=== PATIENT | male | born 1960 | race Caucasian/White ===

== ENCOUNTER 2020-04-20 14:07 | Inpatient (IN) | payer OTHER ==
[~2020-04-20] VITALS: Ht 177.8 cm; Wt 98.5 kg
[2020-04-20 14:12] VITALS: BP 134/84
[2020-04-20 14:49] LABS: ABSOLUTE NEUTROPHILS 8.7 thou/uL (1.4-8.2); BASOPHILS 0.1 % (0.0-2.0); HEMATOCRIT 44.3 % (42.0-52.0); HEMOGLOBIN 15.2 gm/dL (14.0-18.0); LYMPHOCYTES 3.7 % (24.0-44.0); MCH 30.9 pg (26.0-34.0); MCHC 34.3 g/dL (28.0-37.0); MCV 90.1 fL (80.0-100.0); MONOCYTES 4.3 % (1.0-8.0); PLATELET COUNT 220 thou/uL (150-400); POLYS 91.9 % (36.0-66.0); RBC 4.91 mil/uL (4.50-6.00); RDW 13.4 % (10.5-14.5); WBC 9.4 thou/uL (4.0-11.0)
[2020-04-20 15:02] LABS: ALBUMIN 2.7 g/dL (3.4-5.0); CALCIUM 9.3 mg/dL (8.5-10.1); CREATININE 1.4 mg/dL (0.7-1.3); POTASSIUM 3.7 mmol/L (3.5-5.1); TOTAL BILIRUBIN 0.9 mg/dL (0.2-1.0); TOTAL PROTEIN 7.1 g/dL (6.4-8.2)
[2020-04-20 15:12] LABS: APTT 31.4 Seconds (24.5-32.8); PROTIME 9.8 Seconds (9.3-11.4)
[2020-04-20 16:45] LABS: URINE BILIRUBIN NEGATIVE (Negative); URINE BLOOD TRACE (Negative); URINE CLARITY CLEAR; URINE COLOR YELLOW; URINE GLUCOSE-RANDOM* 3+ (Negative); URINE KETONES 2+ (Negative); URINE LEUKOCYTES-REFLEX NEGATIVE (Negative); URINE NITRITE-REFLEX NEGATIVE (Negative); URINE PROTEIN (DIPSTICK) NEGATIVE (Negative); URINE SPECIFIC GRAVITY <= 1.005 (1.005-1.035); URINE UROBILINOGEN 0.2 E.U./dl (0.2-1.0)
[2020-04-20 16:55] LABS: BACTERIA-REFLEX None Seen /HPF (None Seen); CASTS None Seen /LPF (None Seen); CRYSTALS None Seen /LPF (None Seen); SQUAMOUS None Seen /LPF (0-3); URINE RBC 0-2 Rare /HPF (0-2); URINE WBC-REFLEX 0-5 Rare /HPF (0-5)
[2020-04-20] MEDS ORDERED: LOSARTAN-HCTZ1 EAC3 PO (17:15)
[2020-04-20 17:16] VITALS: BP 134/84
[2020-04-20 18:40] VITALS: BP 138/88
[2020-04-20 18:43] VITALS: BP 141/98
--- NOTE | 2020-04-20 19:39 | NUR ---
Report received at 1815 from ER. Pt arrived in the unit at 1843; transferred to bed safely. Vital signs stable. No diet ordered- on carb controlled diet; tolerating well; no nausea, no vomiting and no abdominal pain noted. Admission education done. Forms to be signed. Admission assessment and history to be signed- Night RN informed. Falls bundle in place. On non rebreather mask at 15lpm. No complains and signs of chest pain, crushing sensation and heaviness. With LIZETT Arango AC. Med rec done as per ER staff; no pharmacy in record- Night RN informed. Pt seen and examined by Dr Bray this evening. To continue monitoring patient.
--- NOTE | 2020-04-20 20:23 | HC ---
[facility] [place] [address] CONSULTATION Name: CARMEN ALVAREZ Room #: 356-P [facility] IN M.R.#: [id number] Admission: 04/20/20 Attend Phys: Oleg Cadet MD, [facility] Discharge: Date of : 64 Report #: [id number] THIS REPORT FOR: cc: Oleg Cadet MD [facility] Oleg Cadet MD [facility] Enrique Bray MD ~ DATE OF SERVICE: 04/20/2020 INFECTIOUS DISEASE CONSULTATION REASON FOR CONSULTATION: I was asked to evaluate concerning pneumonia due to COVID. HISTORY OF PRESENT ILLNESS: The patient is a 60-year-old with underlying history of hypertension, who was diagnosed COVID-19 positive on 04/10/2020. He had been sick for approximately 3 days prior to this. He did receive a Medrol Dosepak and a Z-[place]. Initial onset of his infection was marked by fever, headache, loss of taste and smell, mild nausea, nonproductive cough. Subsequently, developed shortness of breath. Albuterol inhaler did not help his symptoms. His fever has resolved, although his shortness of breath has worsened and he was brought into the Emergency Room today. His oxygen sats rate was in the 70s on room air. In addition, he was noticed to have elevated blood glucose above 600. He was started on Decadron in addition to azithromycin and ceftriaxone. He is now on insulin. The patient has had no pleuritic chest pain. No hemoptysis. He has dyspnea with any activity and talking. He is now on a nonrebreather mask. REVIEW OF SYSTEMS: A 14-point review of system was negative other than what has been described above. The patient reports tobacco use, probably 20 years ago. He has had pneumonia as a child. No history of asthma. No known previous history of diabetes. He has been moderately obese. He remains fairly active and he rides motorcycles as his main hobby. ALLERGIES: None known. MEDICATIONS: As noted on his MAR including losartan, hydrochlorothiazide, now on antibiotics and steroids. PAST MEDICAL HISTORY: Hypertension, recurrent sinusitis and seasonal allergies, left knee arthroscopic surgery, neuroma right foot, sinus surgery, facial reconstruction and dental implants. FAMILY HISTORY: Diabetes. [address] [address] CONSULTATION Name: CARMEN ALVAREZ Room #: 356-P [facility] IN M.R.#: [id number] Admission: 04/20/20 Attend Phys: Oleg Cadet MD, FAAF Discharge: Date of : 64 Report #: [id number] SOCIAL HISTORY: He is . His and daughter also had COVID, in recovery. 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 PHYSICAL EXAMINATION: VITAL SIGNS: He was afebrile and hemodynamically stable. GENERAL: He was alert and cooperative. Had a nonrebreather mask in place. He is moderately obese. SKIN: Without rash or decubitus. No palpable adenopathy. EYES: Without scleral icterus. MOUTH: Without mucositis. NECK: Supple. LUNGS: Few crackles were heard in the mid posterior chest and bases. No consolidation. No rub. HEART: Regular without appreciable murmur, gallop or rub. ABDOMEN: Soft, nontender with no hepatosplenomegaly or mass appreciated. EXTREMITIES: Without clubbing, cyanosis or edema. GENITOURINARY: Not performed. RECTAL: Not performed. NEUROLOGIC: Cranial nerves intact. Strength in his upper and lower extremities were symmetric and within normal limits. Mood without anxiety or depression. LABORATORY STUDIES: Reviewed. MICROBIOLOGY: Reviewed. Chest x-ray reviewed. IMPRESSION: 1. COVID-19 with severe acute respiratory syndrome and respiratory failure. 2. Obesity. 3. Hypertension. 4. Newly diagnosed diabetes. 5. Acute kidney injury. RECOMMENDATION: The patient will be started on COVID isolation and on the COVID unit for cardiopulmonary monitoring. He will be started on antiviral therapy. I discussed the risks, benefits of his antiviral therapy including remdesivir and we will add ivermectin in addition to combination multivitamin. Given his rapid progression, we will also offer convalescent plasma. Studies do show best if used early in the disease process, but hopefully this will help control his rapid decline. We will check inflammatory markers and follow laboratory studies and x-ray. We discussed role of oxygen supplementation and possibility of [address] [address] CONSULTATION Name: ANTONIOCARMEN BRANNON Room #: 356-P ADM IN M.R.#: [id number] Admission: 04/20/20 Attend Phys: Oleg Cadet MD, FAAF Discharge: Date of : 64 Report #: [id number] intubation and mechanical ventilation. He was in agreement with full treatment program. Questions were answered. <ELECTRONICALLY SIGNED> By: Enrique Bray MD 04/20/202022 15 30 Enrique Bray MD /nt
[2020-04-21 00:36] VITALS: BP 125/87
[2020-04-21] MEDS ORDERED: PREVACID30 MG PO (01:31)
[2020-04-21 05:03] VITALS: BP 123/75; BP 124/73; BP 129/78
[2020-04-21 05:24] LABS: ABSOLUTE NEUTROPHILS 6.1 thou/uL (1.4-8.2); BASOPHILS 0.3 % (0.0-2.0); HEMATOCRIT 41.4 % (42.0-52.0); HEMOGLOBIN 14.2 gm/dL (14.0-18.0); LYMPHOCYTES 5.9 % (24.0-44.0); MCH 30.7 pg (26.0-34.0); MCHC 34.3 g/dL (28.0-37.0); MCV 89.5 fL (80.0-100.0); MONOCYTES 2.9 % (1.0-8.0); PLATELET COUNT 230 thou/uL (150-400); POLYS 90.9 % (36.0-66.0); RBC 4.63 mil/uL (4.50-6.00); RDW 13.5 % (10.5-14.5); WBC 6.7 thou/uL (4.0-11.0)
[2020-04-21 05:33] LABS: ALBUMIN 2.4 g/dL (3.4-5.0); CALCIUM 8.8 mg/dL (8.5-10.1); CREATININE 1.1 mg/dL (0.7-1.3); POTASSIUM 3.8 mmol/L (3.5-5.1); TOTAL BILIRUBIN 0.5 mg/dL (0.2-1.0); TOTAL PROTEIN 6.4 g/dL (6.4-8.2)
--- NOTE | 2020-04-21 05:44 | NUR ---
ASSESSMENTS CHARTED, MEDS CHARTED GIVEN. PATIENT RESTING IN BED DURING SHIFT. UP AT SULLY IN ROOM, PATIENT ON REBREATHER MASK AT 15 LITERS. PATIENT RECEIVED INITIAL DOSE OF REMDESIVIR AND CONVELESENT PLASMA. FALL PRECAUTIONS IN PLACE DURING SHIFT. DENIED PAIN.
--- NOTE | 2020-04-21 07:39 | EKG ---
[place] [address] [facility] [place] [address] ELECTROCARDIOGRAM REPORT Name: CARMEN ALVAREZ Room #: 356-P ADM IN M.R.#: [id number] Admission: 04/20/20 Attend Phys: Oleg Cadet MD, FAAF Discharge: Date of : 64 Report #: [id number] [facility] ED Test Date: 2020-04-20 Test Time: 15:07:13 Pat Name: CARMEN ALVAREZ Department: Room: 356 Gender: M [employer]: : 1960 Requested By: Dayne Gonzales Order Number: [id number] MD: Neto Oakley Measurements Intervals Craig Rate: 92 P: 26 LA: 160 QRS: 19 QRSD: 103 T: -18 QT: 368 QTc: 456 Interpretive Statements Sinus rhythm Probable left atrial enlargement Inferior infarct, age indeterminate Compared to ECG 05/11/2009 14:39:09 Myocardial infarct finding now present Electronically Signed On 04-21-2020 7:39:37 PIANO TUNER by Neto Oakley [email or web address] <ELECTRONICALLY SIGNED> By: Neto Oakley MD, [facility] 04/21/20 0739 [id number] Neto Oakley MD, FACC /EPI
[2020-04-21 11:32] VITALS: BP 11/65
[2020-04-21 15:27] VITALS: BP 119/80
--- NOTE | 2020-04-21 15:46 | NUR ---
CARE ASSUMED AT 0700, ALERT AND ORIENTED X4, DENIES ANY PAIN, NAUSEA AND VOMITTING. T IS NOW ON OPTI FLOW, 50L, SOB WITH EXERTION. ABLE TO USE URINAL OT GO TO BATHROOM INDEPENDENTLY. PT IS SLOWLY PROGRESSING TOWARDS CARE.
--- NOTE | 2020-04-21 18:28 | NUR ---
CALLED PT ISABELL BACK, NO ANSWER, LEFT A VOICE MESSSAGE.
[2020-04-21 21:05] VITALS: BP 119/79
[2020-04-21 23:29] VITALS: BP 116/73
--- NOTE | 2020-04-22 03:02 | NUR ---
PT PROGRESING TOWARDS D/C GOALS . VSS AFEBRILE. SATS 88-90% ON OPTIFLO. NOTIFIED RT. DENIED PAIN EXCEPT WITH COUGHING. BED DOWN CALL LIGHT IN REACH. ENCOUIRAGED PT TO USE URINAL AT BS.
[2020-04-22 03:44] VITALS: BP 101/72
[2020-04-22 04:06] LABS: GLYCOHEMOGLOBIN (HGB A1C) 12.2 % (4.8-5.6)
--- NOTE | 2020-04-22 05:45 | NUR ---
PT PROGRESING TOWARDS D/C GOALS VSS SATS 95% with optiflo.40LF and 95% fio2. Pt stated he feelslike he is beathing better and lungs are moving air. Nonproductive cough noted. He refused for ns to call for cough meds or lozenges.
[2020-04-22 06:05] LABS: ABSOLUTE NEUTROPHILS 7.1 thou/uL (1.4-8.2); BASOPHILS 0.1 % (0.0-2.0); HEMOGLOBIN 14.2 gm/dL (14.0-18.0); LYMPHOCYTES 7.2 % (24.0-44.0); MCH 30.7 pg (26.0-34.0); MCHC 33.7 g/dL (28.0-37.0); MCV 91.1 fL (80.0-100.0); MONOCYTES 6.2 % (1.0-8.0); PLATELET COUNT 260 thou/uL (150-400); POLYS 86.5 % (36.0-66.0); RBC 4.61 mil/uL (4.50-6.00); WBC 8.3 thou/uL (4.0-11.0)
[2020-04-22 06:53] LABS: ALBUMIN 2.2 g/dL (3.4-5.0); CALCIUM 8.9 mg/dL (8.5-10.1); CREATININE 1.1 mg/dL (0.7-1.3); DIRECT BILIRUBIN 0.1 mg/dL (<0.1-0.2); PHOSPHORUS 3.5 mg/dL (2.6-4.7); POTASSIUM 3.9 mmol/L (3.5-5.1); TOTAL BILIRUBIN 0.4 mg/dL (0.2-1.0)
[2020-04-22 07:47] VITALS: BP 125/77
[2020-04-22 11:50] VITALS: BP 118/52
--- NOTE | 2020-04-22 15:12 | NUR ---
INITIAL ASSESSMENT: DARCY reviewed chart and spoke with nursing and attending physician. Pt was admitted from home due to COVID-19. Pt placed in Enhanced Isolation. Pt had first COVID positive test on 04/10. Pt is afebrile and requiring optiflow. Pt is on IV abx and IV steroids. Pt is on Remdesivir and Ivermectin. SW placed call to pt's room. No answer. Per chart, pt is alert/orientated x 4. Pt lives at home with family. Plan is for pt to discharge home when medically stable. DARCY is following to assist as needed with discharge planning.
[2020-04-22 15:15] VITALS: BP 118/79
--- NOTE | 2020-04-22 18:37 | H ---
[facility] [place] [address] [place] [address] HISTORY AND PHYSICAL Name: CARMEN ALVAREZ Room #: 356-P ADM IN M.R.#: [id number] Admission: 04/20/20 Attend Phys: Oleg Cadet MD, FAAF Discharge: Date of : 64 Report #: [id number] THIS REPORT FOR: cc: Oleg Cadet MD FAAFP FACEP Oleg Cadet MD FAAFP FACEP Oleg Cadet MD FAA FACEP ~ DATE OF SERVICE: 04/20/2020 CHIEF COMPLAINT: Shortness of breath; COVID pneumonia. HISTORY OF PRESENT ILLNESS: The patient is a 60-year-old white male well known to me, who had been sick for a couple of days prior to testing in late March for COVID-19. He has his positive result on 04/10/2020. He started a Z-GABRIELLA and Medrol Dosepak. He has had fever, cough and myalgias. He has had worsening shortness of breath over the past 3-4 days. He did start PulmoAide albuterol breathing treatments aerosolized, had 2 treatment yesterday and 2 today. Despite this, he had persistent worsening shortness of breath. He was directed to the Emergency Department at [facility] where he was found to have bilateral pneumonias, hypoxia with an O2 sat on room air into the 70s and markedly elevated blood sugar at 627 with no personal history of diabetes. He started on insulin, ceftriaxone and azithromycin. He was given Decadron as well and admitted to the step-down unit. An Infectious Disease consult was requested. PAST MEDICAL HISTORY: Hypertension, episodic sinusitis and seasonal allergies. PAST SURGICAL HISTORY: Reconstructive surgery, left knee arthroscopy; right knee Quan's neuroma, right foot; sinus surgery, facial bone harvesting graft, dental implants. MEDICATIONS: Losartan, HCTZ 100/25 one p.o. q.a.m. ALLERGIES: No known drug allergies. Does not feel well with opiate narcotic pain relievers and avoids those. FAMILY HISTORY: Positive for diabetes in a brother who of complications of diabetes with noncompliance. 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 REVIEW OF SYSTEMS: GENERAL: He has had fever, chills. No nausea, vomiting or diarrhea. EYES: Some blurry vision. ENT: No problems with hearing. He has had some change in taste and smell. [facility] [address] [place] [address] HISTORY AND PHYSICAL Name: CARMEN ALVAREZ Room #: 356-P [facility] IN .R.#: [id number] Admission: 04/20/20 Attend Phys: Oleg Cadet MD, FAAF Discharge: Date of : 64 Report #: [id number] CARDIOVASCULAR: Some chest discomfort bilaterally. PULMONARY: His COVID pneumonia with hypoxia. GASTROINTESTINAL: No abdominal pain. GENITOURINARY: No problems urinating. Urine output has been increased over the last 2 weeks. MUSCULOSKELETAL: He has myalgias. NEUROLOGIC: No paresis, paralysis, or paresthesias. PSYCHIATRIC: Frustrated, not depressed. DERMATOLOGIC: No disturbing lesions or rash. Remainder of system review is negative. OBJECTIVE: VITAL SIGNS: Temperature is 35.7, pulse 111, respirations 26, blood pressure 134/84, and pulse ox on room air was 79%. He is now on nonrebreather face mask at 10 liters and is saturating 98%. Speaks full sentences, is coherent and engaging in conversation, no acute distress other than his breathing, which is calm with a rate of 15 at the time of my exam bedside in the Emergency Department. HEENT: Pupils are equal, round, reactive to light and accommodation. Extraocular muscles intact. Pharynx with dry mucous membranes. NECK: Supple. COR: S1, S2. CHEST: Scattered coarse breath sounds with diminished air movement. ABDOMEN: Globus, soft, nontender. EXTREMITIES: No cyanosis, clubbing or edema. NEUROLOGIC: Intact without focal neurologic deficit. LABORATORY EVALUATION: CBC: White count is 9.4, hemoglobin 15.2, hematocrit 44.3, platelets 220,000. Differential on white count, 91.9% segmented neutrophils, 3.7% lymphocytes, 4.3% monocytes, no eosinophils, 0.1 basophils, absolute neutrophil count 8.7. PT is 9.8, INR is 1.0, APTT 31.4. Serum chemistry: Sodium 128, potassium 3.7, chloride 89, CO2 of 25, anion gap 14, BUN 23, creatinine 1.4, estimated glomerular filtration rate is 52, glucose 627. Lactate 2.4, calcium 9.3, total bilirubin 0.9, AST 20, ALT 34, alkaline phosphatase 71. LV total 312. Creatinine kinase 53. C-reactive protein 160.8, total protein 7.1, albumin 2.7. Procalcitonin 0.42. Chest x-ray done from the Emergency Department shows bibasilar infiltrates, worse in both bases. ASSESSMENT: 1. COVID pneumonia. 2. Hypoxic respiratory failure. 3. Hyperglycemia with new diagnosis of diabetes. 4. Hyponatremia. [facility] [address] [place] [address] HISTORY AND PHYSICAL Name: CARMEN ALVAREZ Room #: 356-P ADM IN ..#: [id number] Admission: 04/20/20 Attend Phys: Oleg Cadet MD, RADHA Discharge: Date of : 64 Report #: [id number] PLAN: Admit to hospital, Zithromax, Rocephin and steroids, supplemental oxygen. We will add Lovenox and SCDs for DVT/PE prophylaxis. ID consult. Insulin management for hyperglycemic with new diabetes and diabetic education. <ELECTRONICALLY SIGNED> By: Oleg Cadet MD, BETH, MADY 04/22/20 [phone] Oleg Cadet MD, BETH, FACEP /nt
[2020-04-22 19:13] VITALS: BP 120/66
--- NOTE | 2020-04-22 22:27 | NUR ---
PT RESTING IN BED WATCHING TV. OPTIFLO INTACT, LUNGS WITH CRACKLES. PT STATED PLAN TO USE BIPAP AT HS. PT TALKATIVE AND NOT SOA DURING CONVERSATION. PT REQUESTED O2 TANK TO USE NRB TO USE BR FOR BM. HS SNACK PER PTS REQUEST.
[2020-04-23 04:26] VITALS: BP 109/73
[2020-04-23 07:14] LABS: ALBUMIN 2.2 g/dL (3.4-5.0); CALCIUM 8.7 mg/dL (8.5-10.1); CREATININE 0.9 mg/dL (0.7-1.3); DIRECT BILIRUBIN 0.2 mg/dL (<0.1-0.2); PHOSPHORUS 3.8 mg/dL (2.6-4.7); POTASSIUM 3.6 mmol/L (3.5-5.1); TOTAL BILIRUBIN 0.5 mg/dL (0.2-1.0); TOTAL PROTEIN 5.7 g/dL (6.4-8.2)
[2020-04-23 08:13] VITALS: BP 117/74
[2020-04-23 12:14] VITALS: BP 121/73
--- NOTE | 2020-04-23 14:53 | NUR ---
DARCY reviewed chart and spoke with nursing. Pt remains in Enhanced Isolation due to COVID-19. Pt is afebrile and on optiflow. Pt is on IV abx and IV steroids. Pt is on Remdesivir. DARCY placed call to pt's room. No answer. Plan is for pt to discharge home when medically stable. DARCY is following to assist as needed with discharge planning.
[2020-04-23 15:33] VITALS: BP 147/95
[2020-04-23 16:05] VITALS: BP 107/75
--- NOTE | 2020-04-23 18:20 | NUR ---
ASSUMED PATIENT CARE AT 0700. A/O X4. TOLERATED OPTIFOLLOW. AMBUALTED IN ROOM. SLOWLY TOWARDS POC GOALS.
[2020-04-23 19:52] VITALS: BP 121/86
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
[2020-04-24 04:06] VITALS: BP 115/76
[2020-04-24 06:30] LABS: ALBUMIN 2.3 g/dL (3.4-5.0); CALCIUM 8.8 mg/dL (8.5-10.1); DIRECT BILIRUBIN 0.3 mg/dL (<0.1-0.2); PHOSPHORUS 3.9 mg/dL (2.6-4.7); TOTAL BILIRUBIN 0.6 mg/dL (0.2-1.0); TOTAL PROTEIN 5.2 g/dL (6.4-8.2)
--- NOTE | 2020-04-24 14:55 | NUR ---
NOTE PER AIR SURVEILLANCE OPERATOR: SW spoke with nursing. Pt remains in Enhanced Isolation. Pt remains on Optiflow. Pt is completing course of Remdesivir. No weekend discharge planned. Pt lives at home. SW is following to assist as needed with discharge planning. TIAGO Vargas
[2020-04-24 15:44] LABS: MCH 30.1 pg (26.0-34.0); MCHC 32.5 g/dL (28.0-37.0); MCV 92.5 fL (80.0-100.0); PLATELET COUNT 285 thou/uL (150-400); RBC 4.65 mil/uL (4.50-6.00); RDW 13.6 % (10.5-14.5); WBC 7.8 thou/uL (4.0-11.0)
[2020-04-24 16:13] LABS: ABSOLUTE NEUTROPHILS 6.6 thou/uL (1.4-8.2)
[2020-04-24 16:34] VITALS: BP 127/84
--- NOTE | 2020-04-24 18:31 | NUR ---
PRGRESSING TOWARDS POC GOALS.
[2020-04-24 19:57] VITALS: BP 130/78
[2020-04-25 03:06] VITALS: BP 96/50
--- NOTE | 2020-04-25 05:22 | NUR ---
PROGRESS PT A/O X4 IRRITATED AT IV PUMP ALARMING. IV MEDICATIONS GIVEN ORDERED AND PUMP SHUT OFF FOR THE NIGHT. LUNGS SOUND COARSE CRACKLES IN LOWER LOBES AND DIMINISHED IN UPPER LOBES, HAS A COUGH WITH THICK SPUTUM HE IS UNABLE TO BRING UP, AWAITING SPUTUM SPECIMEN, OLD SPECIMEN FROM 4 DAYS AGO THROWN AWAY AND NEW CONTAINER PROVIDED PT INSTRUCTED TO NOTIFY ME SOON HE HAD AT LEAST A TABLESPOON IN THE CUP. LAC SL FLUSHES WITHOUT DIFFICULTY. ON OPTIFLOW 5LITERS AT 65%. UP AD SULLY TELE INTACT READING SB RATES IN 50'S.
[2020-04-25 11:33] VITALS: BP 124/77
[2020-04-25 15:51] VITALS: BP 129/85
--- NOTE | 2020-04-25 18:28 | NUR ---
ASSUMED PATIENT CARE AT 0700. A/O X4. TITRATED TO 6L/NC. TOLERATED WELL. AMBULATED IN ROOM. PROGRESSING TOWARDS POC GOALS.
[2020-04-25 19:42] VITALS: BP 116/75
--- NOTE | 2020-04-26 06:21 | NUR ---
PROGRESS PT A/O X4 , UP AD SULLY STAND BY WITH EQUIPMENT. ON 6 LITERS O2 VIA HI-HEIDI CANNULA. LUNGS SOUNDS CRACKLES THROUGHOUT HAS A CONGESTED SOUNDING COUGH BUT BRINGING UP VERY LITTLE SPUTUM. PT IN A GOOD MOOD HE'S VERY HAPPY HAPPY TO BE OFF OPTIFLOW AND ON HI-HEIDI CANNULA. RT TX'S ORDERED IV ANTIBIOTICS ADMINISERED ORDERED PT DENIES PAIN CONTINUE POC.
[2020-04-26 08:08] VITALS: BP 117/80
[2020-04-26 11:02] VITALS: BP 114/76
[2020-04-26 16:13] VITALS: BP 123/86
[2020-04-26 20:13] VITALS: BP 120/81
--- NOTE | 2020-04-26 21:51 | NUR ---
PT ALERT AND ORIENTED X4. VSS AFEBRILE. SATS WNL ON 6LNC. DENIED PAIN. NO S/S DISTRESS. WATCHED PT DRAW UP INSULIN FOR 2100. PT PROGRESSING TOWARDS D/C GOALS.
[2020-04-27 04:44] VITALS: BP 115/74
--- NOTE | 2020-04-27 05:41 | NUR ---
PT PROGRESSING TOWARDS D/C GOALS. VSS AFEBRILE. SATS 90% ON 3LNC. PT REFUSED FOR NS TOINCREASE O2 THIS AM. HE STATED IT WOULD GO UP IF HE SAT UP AND TOOK SOME DEEP BREATHS. NO C/O PAIN. CRISTIANOA NOTED PRESENTLY.
[2020-04-27 06:24] LABS: ABSOLUTE NEUTROPHILS 5.6 thou/uL (1.4-8.2); BASOPHILS 0.1 % (0.0-2.0); EOSINOPHILS 0.2 % (0.0-3.0); HEMATOCRIT 42.4 % (42.0-52.0); HEMOGLOBIN 14.4 gm/dL (14.0-18.0); LYMPHOCYTES 8.8 % (24.0-44.0); MCH 30.4 pg (26.0-34.0); MCHC 33.9 g/dL (28.0-37.0); MCV 89.7 fL (80.0-100.0); MONOCYTES 8.6 % (1.0-8.0); PLATELET COUNT 243 thou/uL (150-400); POLYS 82.3 % (36.0-66.0); RBC 4.73 mil/uL (4.50-6.00); RDW 13.1 % (10.5-14.5); WBC 6.8 thou/uL (4.0-11.0)
[2020-04-27 06:30] LABS: CALCIUM 8.8 mg/dL (8.5-10.1); POTASSIUM 4.5 mmol/L (3.5-5.1)
[2020-04-27 07:38] VITALS: BP 118/97
[2020-04-27 11:33] VITALS: BP 111/79
--- NOTE | 2020-04-27 14:03 | NUR ---
Received consult. SW reviewed chart and spoke with nursing. Pt remains in Enhanced Isolation. Pt is progressing towards goals for discharge home. Pt is on 3L of O2. Pt is on IV abx and IV steroids. SW placed call to pt's room to discuss discharge plan. No answer. Pt with new onset diabetes. SW is following to assist as needed with discharge planning.
[2020-04-27 15:27] VITALS: BP 123/67
--- NOTE | 2020-04-27 18:04 | NUR ---
PATIENT TOLERATED 3L/NC. PRGRESSING TOWARDS POC GOALS.
[2020-04-27 19:20] VITALS: BP 117/77
[2020-04-28 00:06] LABS: GLYCOHEMOGLOBIN (HGB A1C) 12.5 % (4.8-5.6)
[2020-04-28 04:25] VITALS: BP 105/65
[2020-04-28 07:50] VITALS: BP 122/79
[2020-04-28 15:02] VITALS: BP 122/79
--- NOTE | 2020-04-28 15:05 | NUR ---
DISCHARGE NOTE: DARCY reviewed chart and spoke with nursing and attending physician. Pt is medically stable for discharge home today with HH and Home O2. Rest/exercise oximetry completed. Pt requires 6L of O2. DARCY placed call to pt's room to discuss discharge plan. No answer. DARCY spoke with pt's , Lakesha, via phone to discuss discharge plan. Pt's is aware of discharge plan and needs. SW provided options for HH and home O2. No preference voiced. DARCY confirmed pt's home address and phone number. DARCY faxed HH referral to [facility] and spoke with Suzy in intake, who confirmed they are able to accept pt on service. DARCY faxed referral to [facility] and notified liaison. Portable O2 tank delivered to the hospital. Awaiting script and finalized discharge orders. Will need to be faxed to providers when available. Pt's will provide transportation home. Contact info for HH and Home O2 providers placed in discharge summary. DARCY is following to assist as needed with discharge planning. [facility] -- [facility]--
[2020-04-28] MEDS ORDERED: GLUCOPHAGE500 MG PO (16:32)
[2020-04-28] MEDS ORDERED: VITAMIN D325 MC1 PO (16:32)
[2020-04-28] MEDS ORDERED: VITAMIN B-1100 M2 PO (16:32)
[2020-04-28] MEDS ORDERED: GLUCOSE4 GM PO (16:32)
[2020-04-28] MEDS ORDERED: ACEROLA C500 MG PO (16:32)
[2020-04-28] MEDS ORDERED: ZINC SULFATE 2220 MG PO (16:32)
[2020-04-28] MEDS ORDERED: PEPCID20 MG PO (16:32)
--- NOTE | 2020-04-28 17:01 | NUR ---
ASSUMED PATIENT CARE AT 0700. A/O X3 . TOLERATED ON 3L/NC. PATIENT GIVEN SELF INSULIN SHOT AND BLOOD SURGER CHECK. DC TO HOME WITH HH AND [facility].
== END 2020-04-28 17:10 | disposition home health service (06) | DRG 177 ==
LOC: ER 14:07 → 3W 16:17 → EROBS 16:17 → 3W 18:27
PROVIDERS: Emergency Medicine; Internal Medicine; Specialist; ADMIT Family Medicine; ATTEND Family Medicine
DX: U07.1 COVID-19 (principal); J12.82 Pneumonia due to coronavirus disease 2019; J80 Acute respiratory distress syndrome; R65.11 Systemic inflammatory response syndrome (SIRS) of non-infectious origin with acute organ dysfunction; E87.1 Hypo-osmolality and hyponatremia; N17.9 Acute kidney failure, unspecified; E11.65 Type 2 diabetes mellitus with hyperglycemia; I95.9 Hypotension, unspecified; E66.9 Obesity, unspecified; I10 Essential (primary) hypertension; Z87.891 Personal history of nicotine dependence; Z88.5 Allergy status to narcotic agent; Z68.31 Body mass index [BMI] 31.0-31.9, adult
CPT/HCPCS: 10879

== ENCOUNTER → 2020-05-19 | Outpatient (CLI) | payer OTHER ==
[~2020-05-19] MED LIST: ACEROLA C500 MG PO; GLUCOPHAGE500 MG PO; GLUCOSE4 GM PO; LOSARTAN-HCTZ1 EAC3 PO; PEPCID20 MG PO; PREVACID30 MG PO; VITAMIN B-1100 M2 PO; VITAMIN D325 MC1 PO; ZINC SULFATE 2220 MG PO
== END ==
LOC: RAD 15:31
PROVIDERS: ATTEND Family Medicine
DX: R91.8 Other nonspecific abnormal finding of lung field (principal); J12.82 Pneumonia due to coronavirus disease 2019

== ENCOUNTER → 2020-06-17 | Outpatient (CLI) | payer OTHER | LOC: RAD 09:50 | PROVIDERS: ATTEND Family Medicine | DX: R91.8 Other nonspecific abnormal finding of lung field (principal); J12.82 Pneumonia due to coronavirus disease 2019 ==